=== PATIENT | male | born 1965 | race Caucasian/White ===

== ENCOUNTER 2016-11-26 08:17 | Day surgery (SDC) | payer MEDICAID ==
[~2016-11-26 08:17] MED LIST: ceFAZolin 2 GM/50 ML 50 ML IV ONE
[2016-11-26] MEDS ORDERED: LACTATED RINGERS 1,000 ML IV ONE ×3 (08:42→14:19)
[2016-11-26] MEDS ORDERED: MIDAZOLAM 2 MG/2 ML VIAL IVP ONE (10:45)
[2016-11-26] MEDS ORDERED: ACETAMINOPHEN 1,000 MG/100 ML VIAL IV ONE (10:45)
[2016-11-26] MEDS ORDERED: PROPOFOL 200 MG/20 ML VIAL IVP ONE (10:45)
[2016-11-26] MEDS ORDERED: GLYCOPYRROLATE 1 MG/5 ML VIAL IVP ONE (10:45)
[2016-11-26] MEDS ORDERED: ROCURONIUM 50 MG/5 ML VIAL IVP ONE (10:45)
[2016-11-26] MEDS ORDERED: SUCCINYLCHOLINE 200 MG/10 ML VIAL IVP ONE (10:45)
[2016-11-26] MEDS ORDERED: DEXAMETHASONE 4 MG/ML VIAL IVP ONE (10:45)
[2016-11-26] MEDS ORDERED: fentaNYL 100 MCG/2 ML VIAL IVP ONE (10:45)
[2016-11-26] MEDS ORDERED: ONDANSETRON 4 MG/2 ML VIAL IVP ONE (10:45)
[2016-11-26] MEDS ORDERED: NEOSTIGMINE 1 MG/1 ML 10 ML MDV IVP ONE (10:45)
[2016-11-26] MEDS ORDERED: LIDOCAINE-PF 2% 10 ML AMP SUBQ ONE (10:45)
[2016-11-26] MEDS ORDERED: LIDOCAINE 1%-EPI 1:100000 30 ML MDV SUBQ ONE (11:00)
[2016-11-26] MEDS ORDERED: BUPIVACAINE 0.5% PF 30 ML VIAL SUBQ ONE (11:00)
[2016-11-26] MEDS ORDERED: oxyCOD/ACETAMIN 5 MG/325 MG TABLET PO ONE (14:15)
== END 2016-11-26 08:18 | disposition home or self-care (01) ==
PROC: 0YUA4JZ Supplement Bilateral Inguinal Region with Synthetic Substitute, Percutaneous Endoscopic Approach (ICD-10-PCS; principal; 2016-11-26 10:32)
DX: K40.20 Bilateral inguinal hernia, without obstruction or gangrene, not specified as recurrent (principal)
CPT/HCPCS: 49650; A9270; C1781; J0131; J0690; J7120

== ENCOUNTER 2017-08-22 19:08 | Emergency (ER) | payer SELFPAY ==
[2017-08-22] MEDS ORDERED: LIDOCAINE VISCOUS 2% 15 ML UDC MM STA (19:44)
[2017-08-22] MEDS ORDERED: MAG HYDROX/AL HYDROX/SIMETH 30 ML UDC PO STA (19:44)
--- NOTE | 2017-08-22 19:45 | ED Physician Documentation ---
PD HPI CHEST PAIN - Stated complaint Stated Complaint: CP - Chief complaint Chief Complaint: Cardiac - History obtained from History obtained from: Patient, Family - History of Present Illness Timing - onset: Other (He has had intermittent chest pain for the last 3 days associated with a cough. It is a nonradiating sharp pain just to the left of the sternum. There is no back or jaw pain. He has had an intermittent nonproductive cough with this. Today the chest pain has been constant for the last 10-12 hours. There is no associated fever. No calf pain or pedal edema. That said he did travel by air 2 weeks ago from the [place]. He has been under a lot of stress with a recent in the family and work-related issues.) Review of Systems Ten Systems: 10 systems reviewed and negative Constitutional: denies: Fever, Chills Throat: denies: Dental pain / toothache, Sore throat Cardiac: reports: Chest pain / pressure. denies: Palpitations, Pedal edema, Calf pain Respiratory: reports: Cough. denies: Dyspnea PD PAST MEDICAL HISTORY - Past Medical History Cardiovascular: None Respiratory: None Endocrine/Autoimmune: None GI: None : None HEENT: None Musculoskeletal: None Derm: Other - Past Surgical History Past Surgical History: Yes - Present Medications Home Medications: Ambulatory Orders Medication Instructions Recorded Confirmed Famotidine [Pepcid] 20 mg PO BID #30 tablet 08/22/17 - Allergies Allergies/Adverse Reactions: Allergies Allergy/AdvReac Type Severity Reaction Status Date / Time shellfish derived Allergy Anaphylaxis Verified 11/25/16 14:41 - Social History Does the pt smoke?: No Smoking Status: Never smoker Does the pt drink ETOH?: No Does the pt have substance abuse?: No - Family History Family history: reports: Non contributory - Immunizations Immunizations are current?: Yes - POLST Patient has POLST: No PD ED PE NORMAL - Vitals Vital signs reviewed: Yes - General General: Alert and oriented X 3, No acute distress - HEENT HEENT: PERRL, EOMI - Neck Neck: Supple, no meningeal sign, No bony TTP, No bruit - Cardiac Cardiac: RRR, No murmur - Respiratory Respiratory: No respiratory distress, Clear bilaterally - Abdomen Abdomen: Soft, Non tender - Back Back: No CVA TTP, No spinal TTP - Derm Derm: Normal color, Warm and dry - Extremities Extremities: No deformity, No tenderness to palpate, No edema, No calf tenderness / cord - Neuro Neuro: Alert and oriented X 3, Normal speech Results - Vitals Vitals: Vital Signs - 24 hr 08/22/17 08/22/17 19:16 20:40 Temperature 36.6 C 36.9 C Heart Rate 95 76 Respiratory 18 19 Rate Blood Pressure 139/71 H 126/63 O2 Saturation 99 99 Oxygen O2 Source Room air - EKG (time done) 1916 Rate: Rate (enter#) (100) Rhythm: Sinus tachycardia [place]: Normal Intervals: Normal [place] QRS: Normal Ischemia: Normal ST segments. No: ST elevation c/w ischemia - Labs Labs: Laboratory Tests 08/22/17 08/22/17 08/22/17 19:50 19:50 19:50 WBC 7.5 RBC 4.59 L Hgb 13.5 L Hct 40.6 L MCV 88.5 MCH 29.5 MCHC 33.4 RDW 13.2 Plt Count 306 MPV 7.4 Neut # 5.3 Lymph # 1.5 Mckenzie # 0.5 Eos # 0.0 Baso # 0.1 Absolute Nucleated RBC 0.01 Nucleated RBC % 0.1 D-Dimer > 200.0 Sodium 137 Potassium 3.2 L Chloride 102 Carbon Dioxide 19 L Anion Gap 16.0 H BUN 17 Creatinine 0.9 Estimated GFR (MDRD) 89 Glucose 122 H Calcium 9.5 Total Bilirubin 0.6 AST 28 ALT 26 Alkaline Phosphatase 55 Troponin I Total Protein 7.8 Albumin 4.6 Globulin 3.2 Albumin/Globulin Ratio 1.4 Lipase 22 08/22/17 19:50 WBC RBC Hgb Hct MCV MCH MCHC RDW Plt Count MPV Neut # Lymph # Mckenzie # Eos # Baso # Absolute Nucleated RBC Nucleated RBC % D-Dimer Sodium Potassium Chloride Carbon Dioxide Anion Gap BUN Creatinine Estimated GFR (MDRD) Glucose Calcium Total Bilirubin AST ALT Alkaline Phosphatase Troponin I < 0.04 Total Protein Albumin Globulin Albumin/Globulin Ratio Lipase PD MEDICAL DECISION MAKING - ED course ED course: 52-year-old with 3 days of chest pain, now constant for greater than 12 hours. His EKG is nonischemic and biomarkers including d-dimer given recent travel are negative. He did have good relief with a GI cocktail. On further exploration he does take Motrin several times a week, has been drinking a little more lately because of stress, and drinks a lot of coffee. This is all most consistent with esophagitis. Departure - Departure Disposition: 01 Home, Self Care Clinical Impression: Esophagitis Chest pain Qualifiers: Chest pain type: chest pain on breathing Qualified Code(s): R07.1 - Chest pain on breathing Condition: Good Record reviewed to determine appropriate education?: Yes Instructions: ED GERD Prescriptions: Famotidine [Pepcid] 20 mg PO BID #30 tablet Comments: Followup with your doctor and return if worse. Recheck your blood pressure on followup, it was abit high today.
[2017-08-22 19:56] LABS: BASOPHILS # (AUTO) 0.1 10^3/uL (0.0-0.1); BASOPHILS % (AUTO) 0.7 %; EOSINOPHILS % (AUTO) 0.6 %; HCT - HEMATOCRIT 40.6 % (42.0-52.0); HGB - HEMOGLOBIN 13.5 g/dL (14.0-18.0); LYMPHOCYTES # (AUTO) 1.5 10^3/uL (1.5-3.5); LYMPHOCYTES % (AUTO) 20.4 %; MEAN CORPUSCULAR HEMOGLOBIN 29.5 pg (27.0-31.0); MEAN CORPUSCULAR HGB CONC 33.4 g/dL (32.0-36.0); MEAN CORPUSCULAR VOLUME 88.5 fL (80.0-94.0); MEAN PLATELET VOLUME 7.4 fL (7.4-11.4); MONOCYTES # (AUTO) 0.5 10^3/uL (0.0-1.0); MONOCYTES % (AUTO) 6.6 %; NEUTROPHILS # (AUTO) 5.3 10^3/uL (1.5-6.6); NEUTROPHILS % (AUTO) 71.7 %; NUCLEATED RED BLOOD CELLS AUTO 0.1 /100WBC; RED BLOOD COUNT 4.59 10^6/uL (4.70-6.10); RED CELL DISTRIBUTION WIDTH 13.2 % (12.0-15.0); UNCORRECTED WHITE BLOOD COUNT 7.5 x10^3/uL; WHITE BLOOD COUNT 7.5 x10^3/uL (4.8-10.8)
[2017-08-22] MEDS ORDERED: MAG HYDROX/AL HYDROX/SIMETH 30 ML UDC ONE (19:56)
[2017-08-22] MEDS ORDERED: LIDOCAINE VISCOUS 2% 15 ML UDC MM ONE (19:56)
[2017-08-22 20:09] LABS: ALBUMIN/GLOBULIN RATIO 1.4 (1.0-2.2); BILIRUBIN,TOTAL 0.6 mg/dL (0.2-1.0); CALCIUM 9.5 mg/dL (8.5-10.3); CREATININE 0.9 mg/dL (0.6-1.2); POTASSIUM 3.2 mmol/L (3.5-5.0); TOTAL PROTEIN 7.8 g/dL (6.7-8.2)
--- NOTE | 2017-08-22 20:12 | XRAY Preliminary Report ---
Exam: XR CHEST 2 VIEW PA/LAT IMPRESSION: No acute disease. [facility] SITE ID: [id number]
--- NOTE | 2017-08-22 20:15 | XRAY Report ---
EXAM: CHEST RADIOGRAPHY EXAM DATE: 08/22/2017 08:06 PM. CLINICAL HISTORY: Chest pain. COMPARISON: None. TECHNIQUE: 2 views. FINDINGS: Lungs/Pleura: Hyperexpanded with flat diaphragm compatible with COPD. No localized infiltrate, consol idation, effusion, or pneumothorax. Mediastinum: Heart and mediastinal contours are unremarkable. Upper lobe vessels not distended. Other: None. IMPRESSION: No acute disease. [facility] Referring Provider Line: [phone] SITE ID: [id number]
[2017-08-22] MEDS ORDERED: FAMOTIDINE 20 MG/2 ML VIAL IVP STA (20:31)
[2017-08-22] MEDS ORDERED: FAMOTIDINE 20 MG TABLET PO STA (20:36)
[2017-08-22] MEDS ORDERED: FAMOTIDINE 20 MG TABLET ONE (20:41)
[2017-08-22 20:42] VITALS: BP 126/63
== END 2017-08-22 20:49 | disposition home or self-care (01) ==
LOC: ED 19:08
DX: K20.9 Esophagitis, unspecified (principal); R07.1 Chest pain on breathing
CPT/HCPCS: 36415; 71020; 80053; 83690; 84484; 85025; 85379; 93005; 99283; 99284; A9270

== ENCOUNTER 2023-10-18 07:00 | Outpatient (CLI) | payer MEDICAID, OTHER ==
--- NOTE | 2023-10-19 11:21 | XRAY Report ---
PROCEDURE: Wrist 3+V RT INDICATIONS: SPRAIN OF RIGHT WRIST TECHNIQUE: 4 views of the wrist were acquired. COMPARISON: None. FINDINGS: Bones: No acute fracture or subluxation seen. Degenerative changes of the wrist are seen with narrow ing of the radiocarpal joint. Degenerative changes of the distal radiaoulnar joint is also noted with deformity of the distal ulna perhaps due to prior trauma. Soft tissues: No radiographically evident soft tissue swelling noted. IMPRESSION: No acute findings Reviewed by: Kevin Barraza MD on 10/18/2023 11:04 AM PST Approved by: Kvein Barraza MD on 10/18/2023 11:04 AM PST Station ID: [id number]
== END 2023-10-18 23:59 | disposition home or self-care (01) ==
LOC: DI.S 07:00
PROVIDERS: ATTEND Physician Assistant
DX: S63.591A Other specified sprain of right wrist, initial encounter (principal)

== ENCOUNTER 2023-11-15 13:31 | Outpatient (CLI) | payer MEDICAID, OTHER ==
--- NOTE | 2023-11-16 10:33 | XRAY Report ---
PROCEDURE: Wrist 3 View RT INDICATIONS: RIGHT WRIST PAIN TECHNIQUE: 3 views of the wrist were acquired. COMPARISON: X-ray right wrist, 10/18/2023.. FINDINGS: Bones: No fractures or dislocations. No suspicious bony lesions. Soft tissues: No suspicious soft tissue calcifications or masses. IMPRESSION: No acute bony abnormality. Reviewed by: Irvin Hendrickson MD on 11/16/2023 10:32 AM [facility] Approved by: Irvin Hendrickson MD on 11/16/2023 10:32 AM [facility] Station ID: [id number]
== END 2023-11-15 23:59 | disposition home or self-care (01) ==
LOC: DI.WOS 13:31
PROVIDERS: ATTEND Physician Assistant Surgical
DX: S63.591D Other specified sprain of right wrist, subsequent encounter (principal)

== ENCOUNTER 2024-02-15 06:45 | Emergency (ER) | payer MEDICAID ==
--- NOTE | 2024-02-15 07:22 | ED Physician Documentation ---
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 No history of heart problems. He has been battling a dental infection of the left mandible and is on we think amoxicillin for it, today's last day with plans for extraction in the near future. 3 days ago and again today he had chest pain. He had it for a couple of hours 3 days ago. It started with light activity around the house. He felt like it was probably a pulled muscle in his left upper chest. Nothing made it better or worse. He had it again today and it is pretty much gone now. It started after getting up but without exertion. He has not been short of breath, nauseous, dizzy, sweaty. No pedal edema or calf pain. PD PAST MEDICAL HISTORY - Past Medical History Past Medical History: Yes Cardiovascular: None Respiratory: None Endocrine/Autoimmune: None GI: GERD : None HEENT: None Musculoskeletal: None Derm: Other - Past Surgical History Past Surgical History: Yes General: Hiatal hernia repair - Present Medications Home Medications: Ambulatory Orders Medication Instructions Recorded Confirmed Famotidine [Pepcid] 20 mg PO BID #30 tablet 08/22/17 02/15/24 Amoxicillin 500 mg PO TID 02/15/24 02/15/24 Amoxicillin 500 mg PO TID #30 cap 02/15/24 - Allergies Allergies/Adverse Reactions: Allergies Allergy/AdvReac Type Severity Reaction Status Date / Time shellfish derived Allergy Anaphylaxis Verified 02/15/24 07:01 - Social History Does the pt smoke?: No Smoking Status: Never smoker Does the pt drink ETOH?: No Does the pt have substance abuse?: No - Immunizations Immunizations are current?: Yes - POLST Patient has POLST: No PD ED PE NORMAL - Vitals Vital signs reviewed: Yes - General General: Alert and oriented X 3, No acute distress - HEENT HEENT: Other (Mild tenderness of left low last molar. No overlying swelling. No trismus. No sublingual edema.) - Neck Neck: Supple, no meningeal sign, No bony TTP - Cardiac Cardiac: RRR, No murmur, Other (Chest pain is reproducible with palpation of the left upper chest wall.) - Respiratory Respiratory: No respiratory distress, Clear bilaterally - Abdomen Abdomen: Non tender - Extremities Extremities: No edema, No calf tenderness / cord - Neuro Neuro: Alert and oriented X 3 Results - Vitals Vitals: Vital Signs - 24 hr 02/15/24 06:48 Temperature 36.7 C Heart Rate 79 Respiratory 18 Rate Blood Pressure 149/88 H O2 Saturation 99 Oxygen O2 Source Room air - EKG (time done) 0723 EKG releavant findings:: EKG personally interpreted by author of this note. Relevant findings are: Rate: Rate (enter#) (62) Rhythm: NSR [place]: Normal Intervals: Normal [place] QRS: Normal Ischemia: ST elevation c/w repol. No: ST elevation c/w ischemia, ST depression - Labs Labs: Laboratory Tests 02/15/24 02/15/24 07:37 07:37 WBC 6.2 RBC 4.55 L Hgb 13.6 L Hct 40.9 L MCV 89.9 MCH 29.9 MCHC 33.3 RDW 12.7 Plt Count 265 MPV 9.7 Neut # (Auto) 4.3 Lymph # (Auto) 1.3 L G[place] # (Auto) 0.5 Eos # (Auto) 0.1 Baso # (Auto) 0.0 Absolute Nucleated RBC 0.00 Nucleated RBC % 0.0 Sodium 138 Potassium 3.8 Chloride 106 Carbon Dioxide 25 Anion Gap 7.0 BUN 13 Creatinine 0.9 Estimated GFR (MDRD) 87 L Glucose 100 Calcium 10.0 Total Bilirubin 0.7 AST 22 ALT 21 Alkaline Phosphatase 48 Troponin I High Sens 2.4 Total Protein 7.5 Albumin 4.6 Globulin 2.9 Albumin/Globulin Ratio 1.6 Lipase 20 - Rads (name of study) 1v cxr- NAD Relevant Findings:: Final report received, EMP independent interpretation of test PD Medical Decision Making - ED course ED course: He presents with intermittent nonexertional and atypical chest pain in the setting of a dental infection. He appears well with normal exam. Actually appears much younger than stated age and quite fit for his age. Workup in the emergency department demonstrates a nonischemic EKG. Mild normocytic anemia and unremarkable CMP and troponin testing. The anemia is chronic looking at old labs. Departure - Departure Disposition: 01 Home, Self Care Clinical Impression: Dental infection Chest pain Qualifiers: Chest pain type: unspecified Qualified Code(s): R07.9 - Chest pain, unspecified Condition: Good Record reviewed to determine appropriate education?: Yes Instructions: ED Chest Pain Atypical Unkn Cause Prescriptions: Amoxicillin 500 mg PO TID #30 cap Comments: Thankfully there is no indication that the current chest pain is related to any serious infection nor heart issue. Follow-up your primary care physician. He or she may want to order stress testing for you. Return if pain returns or is more severe or changes in any way. Continue your efforts to follow-up with the dentist for definitive treatment of your dental infection BRIAN. Forms: PCP List
[2024-02-15 07:50] LABS: BASOPHILS % (AUTO) 0.6 %; EOSINOPHILS # (AUTO) 0.1 10^3/uL (0.0-0.7); EOSINOPHILS % (AUTO) 1.3 %; HCT - HEMATOCRIT 40.9 % (42.0-52.0); HGB - HEMOGLOBIN 13.6 g/dL (14.0-18.0); LYMPHOCYTES # (AUTO) 1.3 10^3/uL (1.5-3.5); LYMPHOCYTES % (AUTO) 20.6 %; MEAN CORPUSCULAR HEMOGLOBIN 29.9 pg (27.0-31.0); MEAN CORPUSCULAR HGB CONC 33.3 g/dL (32.0-36.0); MEAN CORPUSCULAR VOLUME 89.9 fL (80.0-94.0); MEAN PLATELET VOLUME 9.7 fL (7.4-11.4); MONOCYTES # (AUTO) 0.5 10^3/uL (0.0-1.0); MONOCYTES % (AUTO) 7.3 %; NEUTROPHILS # (AUTO) 4.3 10^3/uL (1.5-6.6); NEUTROPHILS % (AUTO) 69.9 %; PLT - PLATELET COUNT 265 10^3/uL (130-450); RED BLOOD COUNT 4.55 10^6/uL (4.70-6.10); RED CELL DISTRIBUTION WIDTH 12.7 % (12.0-15.0); WHITE BLOOD COUNT 6.2 x10^3/uL (4.8-10.8)
--- NOTE | 2024-02-15 08:02 | XRAY Report ---
PROCEDURE: Chest 1V INDICATIONS: Chest Pain TECHNIQUE: One view of the chest was acquired. COMPARISON: 08/22/2017. FINDINGS: Surgical changes and devices: None. Lungs and pleura: No pleural effusions or pneumothorax. Lungs are clear. Mediastinum: Mediastinal contours appear normal. Heart size is normal. Bones and chest wall: No suspicious bony lesions. Overlying soft tissues appear unremarkable. IMPRESSION: No acute cardiopulmonary process. Reviewed by: Raj Brown MD on 02/15/2024 8:01 AM PDT Approved by: Raj Brown MD on 02/15/2024 8:01 AM PDT Station ID: [id number]
[2024-02-15 08:05] LABS: ALBUMIN 4.6 g/dL (3.2-5.5); ALBUMIN/GLOBULIN RATIO 1.6 (1.0-2.2); BILIRUBIN,TOTAL 0.7 mg/dL (0.2-1.0); CREATININE 0.9 mg/dL (0.6-1.3); POTASSIUM 3.8 mmol/L (3.5-4.5); TOTAL PROTEIN 7.5 g/dL (6.4-8.9)
[2024-02-15 08:12] LABS: TROPONIN I HIGH SENSITIVITY 2.4 ng/L (2.3-19.7)
[2024-02-15 08:53] VITALS: BP 132/79; O2SAT 100
== END 2024-02-15 08:51 | disposition home or self-care (01) ==
LOC: ED 06:45
DX: K04.7 Periapical abscess without sinus (principal); R07.9 Chest pain, unspecified
CPT/HCPCS: 36415; 80053; 83690; 84484; 85025; 93005; 99284